=== PATIENT | female | born 1950 | race Caucasian/White ===

== ENCOUNTER 2019-04-04 07:39 | Day surgery (SDC) | payer MEDICARE, OTHER ==
[~2019-04-04] VITALS: Ht 152.4 cm; Wt 49.0 kg
[~2019-04-04 07:39] MED LIST: CLOP75TA19; ESCI10TA; FAMO-96; HYDR-1666; IRON SULFATE; MAG-19; MAGN400O19; METF-849; METO-448; OSCAL; SIMV40TA2; TOPI100T; [UNRECOGNIZED DRUG - CODE]; [UNRECOGNIZED DRUG - CODE]; [UNRECOGNIZED DRUG - CODE]
[2019-04-04 08:54] VITALS: Ht 152.4 cm; Wt 49.0 kg
--- NOTE | 2019-04-04 08:57 | PREAC ---
Date/Time of Note Date/Time of Note DATE: 04/04/19 TIME: 08:55 Anesthesia Eval and Record Evaluation Time Pre-Procedure Interview DATE: 04/04/19 TIME: 08:55 Age 68 Sex female NPO: 8 hrs Preoperative diagnosis Anemia Planned procedure Colonoscopy & EGD Past Medical History Past Medical History: Includes Cardio: HTN, Dyslipidemia Endo: Diabetes GI: GERD Heme: Anemia Surgery & Anesthesia Issues No known issue Meds Anticoagulation: No Beta Ursula within 24 hr: No Reason Beta Ursula not given: Pt. not on B-Ursula Reported Medications Escitalopram Oxalate* (Lexapro*) 10 Mg Tablet 01/22/11 [Oscal] No Conflict Check 01/22/11 Metoprolol Tartrate* (Lopressor*) 25 Mg Tab 01/22/11 Midodrine (Proamatine) 2.5 Mg Tablet 01/22/11 Topiramate* (Topamax*) 100 Mg Tablet 01/22/11 Famotidine* (Pepcid*) 20 Mg Tablet 01/22/11 Heparin Sod (Porcine) (Heparin) 5,000 Unit/0.5 Ml Soln 01/22/11 Metformin* (Glucophage*) 500 Mg Tab 01/22/11 Clopidogrel Bisulfate (Plavix) 75 Mg Tablet 01/22/11 Ascorbic Acid ([place] Chewable C) 500 Mg Tab.chew 01/22/11 [Iron Sulfate] No Conflict Check 01/22/11 Hydrocodone Bit/Acetaminophen (Vicodin 5/500 Tablet) 1 Tab Tablet 01/22/11 Magaldrate/Simethicone* (Mylanta*) 355 Ml Susp 01/22/11 Magnesium Hydroxide* (Milk Of Magnesia*) 400 Mg/5 Ml Oral.susp 01/22/11 Simvastatin* (Zocor*) 40 Mg Tablet 01/22/11 Meds reviewed: Yes Allergies Coded Allergies: No Known Drug Allergy (Verified Allergy, Mild, 01/22/11) Allergies Reviewed: Yes Labs/Studies Labs Reviewed: Reviewed by anesthesiologist test: N/A Studies: ECG (n/a), CXR (n/a) Pre-procedure Exam Airway: Adequate mouth opening, Adequate thyromental dist Mallampati: Mallampati II Teeth: Normal Lung: Normal Heart: Normal ASA Physical Status ASA physical status: 3 Emergency: None Planned Anesthetic General/MAC: MAC Planned Pain Management Parenteral pain med Pre-operative Attestations Prior to commencing anesthesia and surgery, the patient was re-evaluated, there was verification of: *The patient's identity *The results of appropriate recent lab work and preoperative vital signs *The above evaluation not changing prior to induction *Anesthetic plan, risk benefits, alternative and complications discussed with patient/family; questions answered; patient/family understands, accepts and wishes to proceed. MARLEN WALTER MD Apr 04, 2019 08:57
[2019-04-04 09:28] VITALS: BP 191/80; PULSE 72; RESP 20
[2019-04-04] MEDS ORDERED: LEVEMIR (09:30)
[2019-04-04] MEDS ORDERED: ARTIFICAL TEARS (09:30)
[2019-04-04] MEDS ORDERED: FISH OIL (09:30)
[2019-04-04] MEDS ORDERED: FLUOXETINE (09:30)
[2019-04-04] MEDS ORDERED: IBUPROFEN (09:30)
[2019-04-04] MEDS ORDERED: TYLENOL (09:30)
[2019-04-04] MEDS ORDERED: TRADJENTA (09:30)
[2019-04-04] MEDS ORDERED: ERGOCALCIFEROL (09:30)
[2019-04-04] MEDS ORDERED: CARVEDILOL (09:30)
[2019-04-04] MEDS ORDERED: VITAMIN B (09:30)
[2019-04-04] MEDS ORDERED: LOSARTAN (09:30)
[2019-04-04] MEDS ORDERED: IPRATROPIUM (09:30)
[2019-04-04] MEDS ORDERED: ALBUTEROL (09:30)
[2019-04-04] MEDS ORDERED: CRANBERRY (09:30)
[2019-04-04] MEDS ORDERED: GABAPENTIN (09:30)
[2019-04-04] MEDS ORDERED: TAMSULOSIN (09:30)
[2019-04-04] MEDS ORDERED: ATORVASTATIN (09:30)
[2019-04-04] MEDS ORDERED: PROPOFOL 20 ML ONE (09:33)
[2019-04-04] MEDS ORDERED: LABETALOL HCL 20MG INJ ONE (09:33)
[2019-04-04] MEDS ORDERED: hydrALAzine 20 MG INJ ONE (09:33)
--- NOTE | 2019-04-04 09:55 | PAC ---
Date/Time of Note Date/Time of Note DATE: 04/04/19 TIME: 09:54 Post-Anesthesia Notes Post-Anesthesia Note Last documented vital signs T: 98.0 Activity: WNL Respiratory function: WNL Cardiovascular function: WNL Mental status: Baseline Pain reasonably controlled: Yes Hydration appropriate: Yes Nausea/Vomiting absent: Yes MARLEN WALTER MD Apr 04, 2019 09:55
[2019-04-04] MEDS ORDERED: ONDANSETRON 4 MG INJ IV PRN (10:00)
[2019-04-04] MEDS ORDERED: LABETALOL HCL 20MG INJ IV PRN (10:00)
[2019-04-04] MEDS ORDERED: EPHEDrine 25 MG/5 ML SYG IV PRN (10:00)
[2019-04-04] MEDS ORDERED: hydrALAzine 20 MG INJ IV PRN (10:00)
[2019-04-04 10:25] VITALS: BP 127/60; PULSE 78; RESP 24
== END 2019-04-04 14:06 | disposition home or self-care (01) ==
LOC: GIL 07:39
PROVIDERS: ATTEND Internal Medicine Gastroenterology
DX: K92.2 Gastrointestinal hemorrhage, unspecified (principal); K57.30 Diverticulosis of large intestine without perforation or abscess without bleeding; I10 Essential (primary) hypertension; E78.5 Hyperlipidemia, unspecified; E11.9 Type 2 diabetes mellitus without complications; Z79.84 Long term (current) use of oral hypoglycemic drugs
CPT/HCPCS: 43239; 45378; 82962; 88305; 88312; J0360